=== PATIENT | male | born 1940 | race Caucasian/White ===

== ENCOUNTER → 2022-11-11 | Outpatient (CLI) | payer MEDICARE, OTHER ==
[~2022-11-11] MED LIST: ASCO1ER PO; ASPI325 PO; CALCAVITD PO; CALMAGZIN PO; CARB200 PO; CELERY SEED EXTRACT PO; CHOL10002 PO; CYAN500 PO; DULO60 PO; ERGO400 PO; ERGO50000 PO; GABA100 PO; GABA800 PO; GEMF600 PO; HYDCHL25 PO; LEVO750 PO; LISI20 PO; METR500 PO; MORP15ER PO; MORP30ER PO; MORP60ER PO; MSM1000 PO; PREG100 PO; ROSU10TA PO; TERA5 PO; VITA25000 PO; Ventolin Soln3 ML INH; [UNRECOGNIZED DRUG - CODE] PO
[2022-11-12 12:23] LABS: Stool Occult Bld Immuno 1 Negative (NEGATIVE); Stool Occult Bld Immuno 2 Negative (NEGATIVE); Stool Occult Bld Immuno 3 Negative (NEGATIVE)
== END ==
LOC: LAB SHORT 15:41
PROVIDERS: Family Medicine
DX: D64.9 Anemia, unspecified (principal)
CPT/HCPCS: G0328

== ENCOUNTER → 2023-10-02 | Outpatient (CLI) | payer MEDICARE, OTHER | END | disposition home or self-care (01) | LOC: LAB 15:51 → LAB SHORT 15:51 | DX: N39.0 Urinary tract infection, site not specified (principal) | CPT/HCPCS: 87086 ==